=== PATIENT | female | born 1990 | race American Indian/Alaskan Native ===

== ENCOUNTER 2017-08-15 11:24 | Emergency (ER) | payer MEDICAID ==
[2017-08-15 12:16] LABS: Basophils # (Auto) 0.1 K/mm3 (0.0-0.1); Basophils % (Auto) 0.6 % (0.0-1.8); Eosinophils # (Auto) 0.3 K/mm3 (0.0-0.4); Eosinophils % (Auto) 2.1 % (0.0-4.3); Hematocrit 39.3 % (30.3-42.9); Hemoglobin 13.3 gm/dl (10.1-14.3); Lymphocytes # (Auto) 2.2 K/mm3 (1.2-5.4); Lymphocytes % (Auto) 17.5 % (13.4-35.0); Mean Corpuscular HGB Conc 34 % (30-34); Mean Corpuscular Hemoglobin 31 pg (28-32); Mean Corpuscular Volume 92 fl (79-97); Monocytes # (Auto) 0.8 K/mm3 (0.0-0.8); Monocytes % (Auto) 6.4 % (0.0-7.3); Platelet Count 225 K/mm3 (140-440); Red Cell Distribution Width 14.7 % (13.2-15.2)
--- NOTE | 2017-08-15 13:47 | Emergency Department Report ---
HPI - General Chief Complaint: Vaginal Bleeding Time Seen by Provider: 08/15/17 13:35 - HPI HPI: Patient is a 27-year-old 001 female who presents to ED approximately 15 weeks gestation complaining of left-sided lower pelvic cramping and vaginal bleeding that started today. Patient states she saw some vaginal spotting 2 days ago and went to her [employer] at a [facility] [employer] in [place] and was told to go home and take it easy. Patient states today cramping started and bleeding is gone worse. She states she drinks enough fluids he's eating appropriately. She denies fevers/chills/abdominal pain/nausea vomiting chest chest pain headaches dizziness or lightheadedness. ED Past Medical Hx - Past Medical History Previous Medical History?: No - Surgical History Past Surgical History?: No - Social History Smoking Status: Never Smoker Substance Use Type: None - Medications Home Medications: Home Medications Medication Instructions Recorded Confirmed Last Taken Type Acetaminophen/Codeine [Tylenol 1 tab PO Q6H PRN #12 tab 08/15/17 Unknown Rx /Codeine # 3 tab] Ibuprofen [Motrin] 800 mg PO Q8HR PRN #12 tablet 08/15/17 Unknown Rx ED Review of Systems ROS: Stated complaint: VAG BLEEDING/CRAMPING/15WKS PREG. Other details as noted in HPI Constitutional: denies: chills, fever Eyes: denies: eye pain, eye discharge, vision change ENT: denies: ear pain, throat pain Respiratory: denies: cough, shortness of breath, wheezing Cardiovascular: denies: chest pain, palpitations Endocrine: no symptoms reported Gastrointestinal: denies: abdominal pain, nausea, diarrhea Genitourinary: denies: urgency, dysuria, discharge Musculoskeletal: denies: back pain, joint swelling, arthralgia Skin: denies: rash, lesions Neurological: denies: headache, weakness, paresthesias Psychiatric: denies: anxiety, depression Hematological/Lymphatic: denies: easy bleeding, easy bruising Physical Exam - Physical Exam Vital Signs: Vital Signs 08/15/17 08/15/17 11:40 13:04 Temperature 98.7 F 98.7 F Pulse Rate 98 H 79 Respiratory 16 16 Rate Blood Pressure 145/83 Blood Pressure 129/86 [Left] O2 Sat by Pulse 100 100 Oximetry Physical Exam: GENERAL: Alert and oriented x3, no apparent distress, Normal Gait, atraumatic. HEAD: Head is normocephalic and a-traumatic. EYES: Extra ocular muscles are intact. Pupils are equal, round, and reactive to light and accommodation. LUNGS: Symetrical with respiration, No wheezing, no rales or crackles, CTAB. HEART: S1, S2 present, regular rate and rhythm without murmur, no rubs, no gallops. Non tender to palpation ABDOMEN: No organomegaly was noted,Positive bowel sounds, soft, and non- distended. . Nontender to palpation on all Quadrants, NO CVA tenderness. GENITOURINARY: External genitalia without erythema, exudate or discharge. Vaginal vault is without discharge. Cervix is of normal color without lesion. Cervical os is closed. No bleeding noted. Uterus is noted to be of normal size and nontender. No cervical motion tenderness. No masses are palpated. The adnexa are without masses or tenderness. . SKIN: Warm and dry, No lesions, No ulceration or induration present. ED Course Vital Signs 08/15/17 08/15/17 11:40 13:04 Temperature 98.7 F 98.7 F Pulse Rate 98 H 79 Respiratory 16 16 Rate Blood Pressure 145/83 Blood Pressure 129/86 [Left] O2 Sat by Pulse 100 100 Oximetry - Reevaluation(s) Reevaluation #1: Patient is stable sitting comfortably in ED room Vital signs are stable she is in no acute distress waiting on OB 08/15/17 17:31 - Consultations Consultation #1: Dr. Rolando Logan [employer] supervisor component assembler consulted to come and evaluate patient. Spoke to the nurse from the OR stay who communicated with Dr. Logan about the patient. She states that Dr. Logan will be down to evaluate the patient has some as he can. Patient is resting comfortably in the ED, she is in no acute distress 08/15/17 15:49 Consultation #2: Spoke with Dr. Logan attending [employer] supervisor component assembler who stated that the patient should go home and follow-up with him in 2 days for repeat quant. Dr. Logan stated that he reviewed the patient's chart and patient is stable and can follow -up with them in 2 days. He was not able to calm into the room to assess the patient. 08/15/17 18:00 ED Medical Decision Making - Lab Data Result diagrams: 08/15/17 11:50 08/15/17 11:50 - Medical Decision Making 27-year-old female presents to ED with spontaneous ED course: Pt received ultra sound, CBC, urinalysis, test and quantitative in ED All labs within normal limits. Quant was 1101 . Ultrasound shows no intrauterine with a left 1 cm complex cyst, See reported above Discussed findings with the patient. Patient is followed by an [employer] out of [place] called [facility] [employer] Dr. Logan on-call physician was contacted to evaluate patient. Vital signs normalized patient is in no acute distress. I discussed with the patient if follow-up with her [employer]. I discussed all labs and ultrasound findings with the patient. Patient told to follow-up with Dr. Logan's office in 2 days. She states she understands and will follow instructions as given. I discussed with the patient that he if bleeding worsens or new symptoms develop to return to ED immediately Critical care attestation.: If time is entered above; I have spent that time in minutes in the direct care of this critically ill patient, excluding procedure time. ED Disposition Clinical Impression: Spontaneous , Left ovarian cyst Disposition: DC- TO HOME OR SELFCARE Is pt being admited?: No Does the pt Need Aspirin: No Condition: Stable Instructions: Spontaneous Miscarriage (ED), Threatened Miscarriage (ED) Additional Instructions: Make sure to follow up with the [employer] as discussed. Take all your medications as you've been prescribed. If you have any worsening symptoms or develop new symptoms please return to ED immediately. Prescriptions: Acetaminophen/Codeine [Tylenol /Codeine # 3 tab] 1 tab PO Q6H PRN #12 tab PRN Reason: Pain Ibuprofen [Motrin] 800 mg PO Q8HR PRN #12 tablet PRN Reason: Pain Referrals: OSWALD MOSS [Other] - 3-5 Days ADRIANNA ROACH MD [Referring] - 3-5 Days ROLANDO LOGAN MD [Staff Physician] - 3-5 Days Forms: Accompanied Note, Work/School Release Form(ED) Time of Disposition: 18:00
[2017-08-15] MEDS ORDERED: TYLENOL PO ONE (13:50)
[2017-08-15 14:12] LABS: BUN/Creatinine Ratio 19; Blood Urea Nitrogen 15 mg/dL (7-17); Calcium 9.2 mg/dL (8.4-10.2); Hemolysis Index 115
[2017-08-15 15:12] LABS: Bacteria,Urine 1+ /HPF (Negative); Bilirubin,Urine NEG (Negative); Blood,Urine LG (Negative); Color,Urine Yellow (Yellow); Mucus,Urine FEW /HPF; Protein,Urine <15 mg/dL mg/dL (Negative); Urobilinogen,Urine < 2.0 mg/dL (<2.0)
--- NOTE | 2017-08-15 15:20 | Ultrasound Report ---
ULTRASOUND OB LESS THAN 14 WEEKS STATUS ULTRASOUND OB TRANSVAGINAL HISTORY: Pain, vaginal bleeding. COMPARISON: None. TECHNIQUE: Transabdominal and transvaginal ultrasound with color doppler interrogation. FINDINGS: Uterus: The uterus is anteverted. The uterus measures 8 x 4 x 5 cm. No uterine masses appreciated. Normal cervix. Endometrium: The endometrial stripe measures 1.3 cm. No intrauterine is visualized. Right ovary: 3.3 x 1.9 x 2.9 cm. No focal abnormality. Left ovary: 3.8 x 2.5 x 3.3 cm. A 1.4 cm complex area is identified in the left ovary which was unable to corpus luteum cyst. No pelvic fluid or mass is identified. Normal color doppler interrogation. IMPRESSION: No intrauterine is visualized. This may represent a spontaneous with retained products. Please note an ectopic is not excluded. Close interval followup is recommended.
[2017-08-15 18:35] VITALS: BP 128/78
== END 2017-08-15 18:33 | disposition home or self-care (01) ==
LOC: ED 11:24
DX: O03.9 Complete or unspecified spontaneous abortion without complication (principal); N83.202 Unspecified ovarian cyst, left side; Z3A.15 15 weeks gestation of pregnancy
CPT/HCPCS: 36415; 76801; 76817; 80048; 81001; 84702; 84703; 85025; 86850; 86900; 86901; 99284

== ENCOUNTER 2017-08-21 12:40 | Outpatient (CLI) | payer MEDICAID | END 2017-08-21 12:41 | disposition home or self-care (01) | LOC: LAB 12:40 | PROVIDERS: ATTEND Obstetrics & Gynecology | DX: Z00.01 Encounter for general adult medical examination with abnormal findings (principal); R79.89 Other specified abnormal findings of blood chemistry | CPT/HCPCS: 36415; 84702 ==